=== PATIENT | male | born 1990 | race Caucasian/White ===

== ENCOUNTER → 2020-10-08 12:25 | Outpatient (CLI) | payer OTHER | END | disposition home or self-care (01) | LOC: LAB 12:25 | PROVIDERS: ATTEND Physical Medicine & Rehabilitation | DX: Z03.818 Encounter for observation for suspected exposure to other biological agents ruled out (principal) ==

== ENCOUNTER 2025-02-17 09:41 | Outpatient (CLI) | payer OTHER ==
[~2025-02-17 09:41] MED LIST: BUTALB-ACETAMI1 EAC2 PO
== END 2025-02-17 09:44 | disposition home or self-care (01) ==
LOC: MRI 09:41
PROVIDERS: ATTEND Physical Medicine & Rehabilitation
DX: R51.9 Headache, unspecified (principal)
CPT/HCPCS: 70551